=== PATIENT | male | born 1955 ===

== ENCOUNTER 2018-03-27 01:28 | Emergency (ER) | payer OTHER ==
--- NOTE | 2018-03-27 03:37 | C.PDOC ---
History Of Present Illness 63 year old male is brought to the ED after being found intoxicated in the street sleeping. Patient admits to drinking alcohol today. Patient denies SI/HI , hallucinations, fever, chills, SOB, CP. Time Seen by Provider: 03/27/18 01:38 Chief Complaint (Nursing): Substance Abuse History Per: Patient History/Exam Limitations: intoxication Onset/Duration Of Symptoms: Hrs Current Symptoms Are (Timing): Still Present Suicide/Self Injury Attempted (Context): None Modifying Factor(s): Alcohol Associated Symptoms: denies: Depression, Suicidal Thoughts, Suicidal Plan Recent travel outside of the [place]: No Additional History Per: Patient Past Medical History Reviewed: Historical Data, Nursing Documentation, Vital Signs Vital Signs: Last Vital Signs Temp 97.4 F L 03/27/18 05:24 Pulse 60 03/27/18 05:24 Resp 18 03/27/18 05:24 BP 129/74 03/27/18 05:24 Pulse Ox 96 03/27/18 06:00 - Medical History PMH: No Chronic Diseases Surgical History: No Surg Hx Family History: States: Unknown Family Hx - Social History Hx Alcohol Use: Yes Hx Substance Use: No - Immunization History Hx Tetanus Toxoid Vaccination: No Hx Influenza Vaccination: No Hx Pneumococcal Vaccination: No Review Of Systems Constitutional: Negative for: Fever, Chills Cardiovascular: Negative for: Chest Pain Respiratory: Negative for: Shortness of Breath Gastrointestinal: Negative for: Nausea, Vomiting Skin: Negative for: Rash Psych: Negative for: Depression, Suicidal ideation Physical Exam - Physical Exam Appears: Non-toxic, No Acute Distress Skin: Normal Color, Warm, Dry Head: Atraumatic, Normacephalic Eye(s): bilateral: Normal Inspection Oral Mucosa: Moist Neck: Normal ROM, Supple Chest: Symmetrical Cardiovascular: Rhythm Regular Respiratory: Normal Breath Sounds, No Rales, No Rhonchi, No Wheezing Gastrointestinal/Abdominal: Soft, No Tenderness, No Guarding, No Rebound Extremity: Normal ROM, No Tenderness, No Swelling Neurological/Psych: Oriented x3, Normal Speech Gait: Steady ED Course And Treatment O2 Sat by Pulse Oximetry: 96 (ON RA) Pulse Ox Interpretation: Normal Medical Decision Making Medical Decision Making: Impression: substance abuse Plan: * D/C when sober Disposition Counseled Patient/Family Regarding: Diagnosis - Disposition Referrals: [facility] [place] [facility] [place] [facility] [Outside] [facility] at [place] [Outside] Disposition: HOME/ ROUTINE Disposition Time: 05:59 Condition: GOOD Additional Instructions: return if symptoms worsen Forms: [facility] (Thai) - Clinical Impression Clinical Impression: Alcohol abuse - Scribe Statement The provider has reviewed the documentation as recorded by the Scribe Yung Schreiber All medical record entries made by the Scribe were at my direction and personally dictated by me. I have reviewed the chart and agree that the record accurately reflects my personal performance of the history, physical exam, medical decision making, and the department course for this patient. I have also personally directed, reviewed, and agree with the discharge instructions and disposition.
[2018-03-27 05:26] VITALS: BP 129/74; PULSE 60; RESP 18; TEMP 97.4
[2018-03-27 06:00] VITALS: O2SAT 96
== END 2018-03-27 06:47 | disposition home or self-care (01) ==
LOC: C.ER 01:28
DX: F10.10 Alcohol abuse, uncomplicated (principal)